=== PATIENT | male | born 1955 | race African-American/Black ===

== ENCOUNTER 2024-03-15 12:51 | Emergency (ER) | payer MEDICARE, MEDICAID ==
[~2024-03-15] VITALS: Ht 172.7 cm; Wt 78.0 kg
[2024-03-15 12:53] VITALS: RESP 18
[2024-03-15 13:18] VITALS: BP 145/74; PULSE 81; TEMP 98.7; O2SAT 99
[2024-03-15 14:15] LABS: BASOPHILS % 0.6 % (0.0-2.0); EOSINOPHILS % 0.2 % (0.0-5.0); HEMATOCRIT. 41.9 % (42.0-52.0); HEMOGLOBIN. 13.4 g/dL (14.0-18.0); LYMPHOCYTES % 11.2 % (20.0-50.0); MEAN CORPUSCULAR HEMOGLOBIN 29.7 pg (28.0-32.0); MEAN CORPUSCULAR HGB CONC 32.1 g/dL (31.0-37.0); MEAN CORPUSCULAR VOLUME 92.5 fL (80.0-94.0); MEAN PLATELET VOLUME 9.6 fl (7.4-10.4); MONOCYTES % 3.8 % (2.0-8.0); NEUTROPHILS % 84.2 % (40.0-76.0); PLATELET 309 x1000/uL (130-400); RED BLOOD CELL COUNT 4.53 mill/uL (4.7-6.1); RED CELL DISTRIBUTION WIDTH 13.8 % (11.6-14.6); WHITE BLOOD COUNT 18.2 x1000/uL (4.5-11.0)
[2024-03-15 14:22] LABS: CHLORIDE 101 mEq/L (98-107); SODIUM 132 mEq/L (136-145)
[2024-03-15 14:23] LABS: CARBON DIOXIDE 24 mEq/L (21-32)
[2024-03-15 14:28] LABS: CREATININE 1.4 mg/dL (0.6-1.3); UREA NITROGEN BLOOD 16 mg/dL (9-23)
[2024-03-15 14:34] LABS: GLUCOSE 409 mg/dL (70-105)
[2024-03-15] MEDS: SODIUM CHLORIDE 0.9% 1,000 ML IV ONE (16:21)
[2024-03-15] MEDS: INSULIN REGULAR (HUMULIN R) 300UNITS/3ML VIAL SUBCUT NR (16:59)
[2024-03-15] MEDS ORDERED: SITA100T11 MT (17:18)
[2024-03-15 17:26] LABS: CLARITY URINE CLEAR (CLEAR); COLOR URINE YELLOW (YELLOW); GLUCOSE URINE 3+ (NEGATIVE); KETONES URINE TRACE (NEGATIVE); LEUKOCYTE ESTERASE URINE NEGATIVE (NEGATIVE); NITRITE URINE NEGATIVE (NEGATIVE); OCCULT BLOOD URINE NEGATIVE (NEGATIVE); PH URINE 5.5 (4.5-8.0); PROTEIN URINE NEGATIVE (NEGATIVE); SPECIFIC GRAVITY URINE 1.029 (1.005-1.030); UROBILINOGEN URINE 0.2 E.U./dL (0.2-1.0)
[2024-03-15 17:39] LABS: BACTERIA URINE TRACE; RBC URINE NONE SEEN /hpf (0-2); SQUAMOUS EPITHELIAL CELL URINE FEW /lpf (RARE/1+); WBC URINE 0-2 /hpf (0-2)
[2024-03-15 18:23] LABS: BG BASE EXCESS -3.6 mmol/L (-2.0-2.0); BG CARBOXYHEMOGLOBIN 2.8 % (0.5-1.5); BG DEOXYHEMOGLOBIN 3.2 % (0.0-5.0); BG FRACTION INSPIRED OXYGEN 21; BG HCO3 ACT 20.9 mmol/L (22.0-26.0); BG METHEMOGLOBIN 0.3 % (0.0-1.5); BG OXYGEN SATURATION 96.7 % (92.0-98.5); BG OXYHEMOGLOBIN 93.7 % (94.0-97.0); BG PCO2 36.1 mmHg (35.0-45.0); BG PH 7.381 (7.350-7.450); BG SAMPLE SITE RIGHT RADIAL; BG TOTAL HEMOGLOBIN 13.2 g/dL (12.0-18.0); BG VENT MODE ROOM AIR
== END 2024-03-15 19:00 | disposition home or self-care (01) ==
LOC: ER 12:51
DX: I10 Essential (primary) hypertension (principal); E11.9 Type 2 diabetes mellitus without complications
CPT/HCPCS: 99284; 96360; 71045; 96361; 80048; 81003; 82962; 85025; 36415; 82805; 82375; 36600; 96372; J7030; J1815